=== PATIENT | male | born 1985 | race Caucasian/White ===

== ENCOUNTER 2018-10-01 09:38 | Emergency (ER) | payer MEDICAID ==
[~2018-10-01] VITALS: Ht 175.3 cm; Wt 78.5 kg
[2018-10-01 09:47] VITALS: BP 141/76
--- NOTE | 2018-10-01 09:49 | NUR ---
PATIENT AMBULATED TO BED 11 AT THIS TIME.
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
--- NOTE | 2018-10-01 10:20 | NUR ---
DR ROSE AT BEDSIDE
[2018-10-01 10:43] VITALS: BP 137/75
--- NOTE | 2018-10-01 10:43 | NUR ---
Patient discharged with v/s stable. Written and verbal after care instructions given and explained. Patient alert, oriented and verbalized understanding of instructions. Ambulatory with steady gait. All questions addressed prior to discharge. ID band removed. Patient advised to follow up with PMD. Rx of VALIUM AND IBUPROFEN given. Patient educated on indication of medication including possible reaction and side effects. Opportunity to ask questions provided and answered. PT INSTRUCTED TO NOT DRIVE AFTER TAKING VALIUM. PT GIVEN ICE PACKET AND INSTRUCTED TO APPLY ICE TO PAINFUL AREAS.
== END 2018-10-01 10:43 | disposition home or self-care (01) ==
LOC: MED 09:38
DX: S39.012A Strain of muscle, fascia and tendon of lower back, initial encounter (principal); V49.9XXA Car occupant (driver) (passenger) injured in unspecified traffic accident, initial encounter; Y93.89 Activity, other specified; Y92.410 Unspecified street and highway as the place of occurrence of the external cause; Y99.8 Other external cause status
CPT/HCPCS: 81002; 99283

== ENCOUNTER 2019-07-03 14:31 | Emergency (ER) | payer SELFPAY ==
[~2019-07-03] VITALS: Ht 175.3 cm; Wt 77.1 kg
--- NOTE | 2019-07-03 14:32 | NUR ---
PT TAKEN TO BED 6.
[2019-07-03 14:35] VITALS: BP 132/78
[2019-07-03 15:20] VITALS: BP 132/78
--- NOTE | 2019-07-03 15:20 | NUR ---
C/O ONGOING GENERALIZED RASH WITH PRURITUS >3 WKS SEEN OUTSIDE CLINIC DX SCABIES RX PERMETHRINE CREAM X 3 APPLICATIONS
--- NOTE | 2019-07-03 15:20 | NUR ---
Patient discharged with v/s stable. Written and verbal after care instructions given and explained. Patient alert, oriented and verbalized understanding of instructions. Ambulatory with steady gait. All questions addressed prior to discharge. ID band removed. Patient advised to follow up with PMD. Rx of BENARDYL/MEDROL/TRIAMCINOLONE ACETONIDE given. Patient educated on indication of medication including possible reaction and side effects. Opportunity to ask questions provided and answered.
== END 2019-07-03 15:21 | disposition home or self-care (01) ==
LOC: MED 14:31
DX: R21 Rash and other nonspecific skin eruption (principal); R03.0 Elevated blood-pressure reading, without diagnosis of hypertension; L29.9 Pruritus, unspecified
CPT/HCPCS: 99283